=== PATIENT | female | born 2000 | race Caucasian/White ===

== ENCOUNTER → 2021-10-26 | Outpatient (CLI) | payer MEDICAID, SELFPAY | END | disposition home or self-care (01) | LOC: LABSPEC 15:34 | PROVIDERS: Visit Provider Obstetrics & Gynecology | DX: O26.891 Other specified pregnancy related conditions, first trimester (principal); R30.0 Dysuria; Z3A.00 Weeks of gestation of pregnancy not specified | CPT/HCPCS: 87086 ==

== ENCOUNTER 2022-01-24 13:14 | Outpatient (CLI) | payer MEDICAID, SELFPAY ==
[2022-01-24 13:44] LABS: Hematocrit 29.7 % (37-47); Hemoglobin 9.6 g/dL (12.0-15.0); Mean Corp Hgb Conc 32.3 g/dL (32-36); Mean Corpuscular Hgb 26.3 pg (27.0-32.0); Mean Corpuscular Volume 81.4 fL (81-99); Mean Platelet Vol. 11.1 fl (6.2-12.0); Platelet Count 324 K/mm3 (150-450); RBC Distribution Width CV 13.6 % (11.6-14.6); RBC Distribution Width SD 40.3 fl (35.1-43.9); Red Blood Count 3.65 M/mm3 (4.2-5.4); White Blood Count 11.7 K/mm3 (4.4-11.0)
[2022-01-24 13:47] LABS: Glucose Challenge Gest 1H 50g 128 mg/dL (70-140)
== END 2022-01-24 23:59 | disposition home or self-care (01) ==
LOC: WOBLAB 13:15
PROVIDERS: Visit Provider Obstetrics & Gynecology
DX: Z34.83 Encounter for supervision of other normal pregnancy, third trimester (principal)
CPT/HCPCS: 36415; 82950; 85027

== ENCOUNTER 2022-03-03 16:50 | Outpatient (CLI) | payer MEDICAID, SELFPAY ==
[2022-03-03 17:06] VITALS: BP 119/72; PULSE 93; TEMP 37.4; O2SAT 97
[2022-03-03 17:08] VITALS: PULSE 92; O2SAT 97
[2022-03-03 17:13] VITALS: PULSE 101; O2SAT 97
[2022-03-03 17:18] VITALS: PULSE 99; O2SAT 99
[2022-03-03 17:23] VITALS: BMI 45.3
[2022-03-03 18:11] LABS: ROM Internal Control Test YES-OK TO RESULT pt. (Internal QC); ROM Patient Test Negative (Negative)
--- NOTE | 2022-03-03 23:50 | OB.TRI.NOTE ---
HPI - General HPI Narrative KATARZYNA BOATENG, is a 21 F who presents at 32 3/7 weeks gestation with twin gestation and c/o leaking of fluid. She reports coughing, had fever a few days ago. Issues: -anxiety -BMI >40 -Prior C/S -Twin gestation -on Lovenox -hx asthma PFSH PFSH Home Medications albuterol 2 INHALATION PRN PRN 03/03/22 [History Last Taken 03/03/22 10:00] enoxaparin [Lovenox] 112 mg SUBCUT Q12H 03/03/22 [History Last Taken 03/03/22 09:00] Allergy/AdvReac Type Severity Reaction Status Date / Time amoxicillin Allergy Other Verified 03/03/22 17:27 Penicillins [PCN] Allergy Other Verified 03/03/22 17:27 cephalexin [From Keflex] AdvReac Other Verified 03/03/22 17:28 NST FHR Rate Baby A Baseline: 130 Variability:: Moderate Accelerations:: 15 x 15 Decelerations:: None NST Reactive:: Yes FHR Category:: Category I Uterine Activity:: 0/10 FHR Rate Baby B Baseline: 135 Variability:: Moderate Accelerations:: 15 x 15 Decelerations:: None NST Reactive:: Yes FHR Category:: Category I Uterine Activity:: 0/10 Assessment & Plan (1) False labor before 37 completed weeks of gestation: QUALIFIERS: Trimester: third trimester Qualified Code(s): O47.03 - False labor before 37 completed weeks of gestation, third trimester PLAN: Reactive NST x 2 ROM plus negative Respiratory panel sent given persistent cough and recent fever, f/u results Not in labor, d/c home
== END 2022-03-03 19:08 | disposition home or self-care (01) ==
LOC: WPOUT 16:55 → WP 16:56
PROVIDERS: Visit Provider Obstetrics & Gynecology
DX: O47.03 False labor before 37 completed weeks of gestation, third trimester (principal); O30.003 Twin pregnancy, unspecified number of placenta and unspecified number of amniotic sacs, third trimester; O34.219 Maternal care for unspecified type scar from previous cesarean delivery; O99.513 Diseases of the respiratory system complicating pregnancy, third trimester; Z20.822 Contact with and (suspected) exposure to COVID-19; R05.9 Cough, unspecified; Z3A.32 32 weeks gestation of pregnancy
CPT/HCPCS: 59025; 59050; 84112; 87426; 87633; 99218; G0378

== ENCOUNTER 2022-03-12 23:20 | Inpatient (IN) | payer MEDICAID, SELFPAY ==
[2022-03-12 22:19] VITALS: PULSE 86; O2SAT 98
[2022-03-12 22:23] VITALS: BP 131/73; PULSE 81
[2022-03-12 22:25] VITALS: BMI 45.5
[2022-03-12 22:27] VITALS: BP 131/73; PULSE 88; TEMP 36.9; O2SAT 98
[2022-03-12 22:42] LABS: ROM Internal Control Test YES-OK TO RESULT pt. (Internal QC); ROM Patient Test POSITIVE (Negative)
[2022-03-12] MEDS: Lactated Ringers 1,000 ML 999 ML IV (23:00)
[2022-03-12] MEDS: Betamethasone/Betamethasone 30 MG/5 ML Vial 12 MG IM (23:14)
[2022-03-12 23:31] LABS: Absolute Lymphocyte Count 2.66 X10^3/uL (0.83-4.51); Absolute Neutrophil Count 6.4 X10^3/uL (2.0-7.7); Basophil# 0.01 X10^3/uL; Basophil% 0.1 % (0-1); Eosinophil# 0.19 X10^3/uL; Eosinophils% 1.9 % (0-5); Hematocrit 31.6 % (37-47); Hemoglobin 9.8 g/dL (12.0-15.0); Lymphocyte # 2.66 X10^3/ul (0.83-4.51); Lymphocyte % 26.3 % (19-41); Mean Corpuscular Hgb 25.1 pg (27.0-32.0); Mean Platelet Vol. 11.9 fl (6.2-12.0); Monocyte# 0.71 X10^3/uL; NRBC Flagged by Analyzer 0.6 % (0-5); Neutrophil # 6.42 X10^3/uL (2.7-7.7); Neutrophil % 63.6 % (47-70); Platelet Count 333 K/mm3 (150-450); RBC Distribution Width CV 14.3 % (11.6-14.6); RBC Distribution Width SD 41.7 fl (35.1-43.9); White Blood Count 10.1 K/mm3 (4.4-11.0)
[2022-03-12 23:51] VITALS: BP 150/75; PULSE 82; RESP 16; TEMP 37.2; O2SAT 98
--- NOTE | 2022-03-12 23:52 | PCM.HP.BLA ---
History and Physical Date of Admission: 03/12/22 HPI: 21-year-old G3, P1 at 33/6 weeks with dichorionic diamnionic gestation, NICK 04/24/2022 by LMP, admitted for prelabor rupture of membranes. Reports gush of fluid and leaking at 2049 tonight. Reports contractions. Denies vaginal bleeding. Reports movements. Denies headache, vision changes, shortness of breath or chest pain, nausea or vomiting, diarrhea or constipation, fevers or chills. complicated by: prelabor rupture membranes, class III obesity, presumed/working diagnosis of PE in January 2022 based on chest pain and syncope (CTA was unable to be completed due to error with contrast) being treated with therapeutic Lovenox 1 mg/kg subcu twice daily, anxiety, asthma not on medication, dichorionic diamniotic gestation CNC MACHINIST history: G1: 40-week , failure to progress G2: 6-week SAB G3: Current Medical history: 1. Class III obesity 2. PE January 2022 on Lovenox 3. Asthma not on medication Surgical history: 1. section 2. Tonsillectomy and adenoidectomy Medications: 1. Lovenox 1 mg/kg BID 2. Iron Social: Denies alcohol or drug use, former tobacco Family history: No history of blood clots or bleeding disorders Allergy: Penicillin causes palpitations Review of system: Negative otherwise stated above Physical exam: Vitals: BP 131/73, HR 88, Temp 98.5F, O2 sat 98% on RA General: No acute distress, uncomfortable with contraction HEENT: Normocephalic/atraumatic, PERRLA Cardiac: Regular rate and rhythm Lungs: Clear to auscultation bilaterally Abdomen: Soft, nontender, obese, gravid Extremity: Minimal edema Neurologic: Cranial nerves II through XII grossly intact Musculoskeletal: Movement throughout all extremities, strength 5 out of 5 throughout Cervical exam: 2/60/-3, grossly ruptured, ROM positive FHR A: 150/mod nicholas/+accel/no decel FHR B: 145/mod nicholas/+accel/no decel Spiro: irregular BSUS: vertex/breech panel: None found in records, pending Labs today: CBC: WBC 10.1, hemoglobin/hematocrit 9.8/31.6, platelet 333 Assessment & Plan Assessment/Plan (1) Ruptured, membranes, premature: PLAN: 21-year-old G3, P1 at 33/6 weeks with dichorionic diamnionic gestation, NICK 04/24/2022 by LMP, admitted for prelabor rupture of membranes. complicated by: prelabor rupture membranes, class III obesity, presumed/working diagnosis of PE in January 2022 based on chest pain and syncope (CTA was unable to be completed due to error with contrast) being treated with therapeutic Lovenox 1 mg/kg subcu twice daily, anxiety, asthma not on medication, dichorionic diamniotic gestation. ?Admit to labor and delivery. ?Plan for repeat section at 34 weeks, which is midnight due to prelabor rupture of membranes. Patient is uncomfortable with contractions, 2 cm dilated. Current a [facility] guidelines to consider observation versus delivery between 34/0 and 37 weeks. With her history of recent PE during this on Lovenox, balancing delivery versus maternal wellbeing with prompt resumption of Lovenox. Patient is also likely in early labor based on discomfort with contractions and cervical dilation. We will plan to proceed with repeat section at 34/0 weeks based on clinical scenario. ?Celestone given ?No need for magnesium sulfate for neuro protection as patient is greater than 32 weeks gestation ?We will give gentamicin, clindamycin, azithromycin preoperatively. Patient is allergic to penicillins, therefore will hold ampicillin. ?History of postoperative surgical site infection about 1 week after for . Continue antibiotics for 24 hours postdelivery. ?Patient taking therapeutic Lovenox 1 mg/kilogram every 12 hours for pulmonary embolism diagnosed in January 2022. 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 We will resume therapeutic Lovenox . ?Anemia of . -Asthma: Not on medication ?Anxiety: Not on medication currently. (2) Dichorionic diamniotic twin gestation: (3) History of pulmonary embolus during : (4) History of section: (5) Class 3 severe obesity due to excess calories in adult:
[2022-03-12 23:53] VITALS: BP 150/75; PULSE 81
[2022-03-13] VITALS (16 sets, daily range): BP systolic 113–167; BP diastolic 40–103; PULSE 58–91; RESP 10–19; TEMP 35.9–36.7; O2SAT 94–100
[2022-03-13] MEDS: Sodium Citrate/Citric Acid 30 ML UDC PO (00:11)
[2022-03-13] MEDS: Acetaminophen 500 MG Tablet 1000 MG PO ×3 (00:12→13:42)
[2022-03-13] MEDS: Clindamycin 900 MG/50 ML BAG 75 MG IV ×3 (00:20→18:38)
[2022-03-13] MEDS: Carboprost Tromethamine 250 MCG/ML Ampul IM (00:53)
--- NOTE | 2022-03-13 01:39 | EX.PCM.OBRPT ---
Maternal Data Information Final NICK: 04/24/22 Final NICK Source: LMP Details Operative Information Date of Procedure: 03/13/22 Pre-Operative Diagnosis: Di chorionic diamniotic gestation, prelabor rupture of membranes Post-Operative Diagnosis: Di chorionic diamniotic gestation, prelabor rupture of membranes Indications Narrative: 21-year-old at 34/0 weeks presenting with prelabor rupture of membranes with dichorionic diamniotic twin gestation. Complicated further by class III obesity, history of pulmonary embolus during on therapeutic Lovenox, history of asthma with rare albuterol use, history of anxiety. For repeat section. All risk, benefits, alternatives discussed with the patient. Risk include are not limited to: Risk of bleeding twin transfusion, infection, injury to surrounding tissue including bowel/bladder requiring prolonged Marie catheter use, VTE, ICU admission. Patient were consented. Classification: ANIBAL Procedure Type: low transverse Estimated Blood Loss: 1000 cc Fluids Replaced: 1000 cc Findings Description of Procedure: Procedure: Patient taken to the operating room. Marie catheter placed. Prepped and draped in the usual sterile fashion. General anesthesia induced. Pfannenstiel skin incision made with scalpel and carried down through subcutaneous tissue. Fascia nicked. Extended bluntly and sharply using Pickering scissors. Rectus muscles noted to be very , peritoneum adhesed to fascia. Yaw clamps grasped superior fascial edge and underlying rectus muscles dissected off bluntly and sharply using Pickering scissors. Peritoneum entered bluntly and extended bluntly. Bladder blade placed. Low transverse uterine incision made with scalpel and extended bluntly. Hand placed into the uterine cavity. Head elevated to the level of the hysterotomy, bladder blade removed. With the assistance of gentle fundal pressure, head delivered followed by body. Cord clamped and cut. Baby handed to waiting nursery staff. Baby baby's amniotic sac ruptured, clear fluid. Breech position. Feet noted after rupture of membranes. Feet delivered followed by legs. Baby rotated back up. Blue towel placed around abdomen. Torso guided out of the hysterotomy. Arms delivered by sweeping across chest anteriorly. Head flexed and delivered. Cord clamped and cut, baby handed to nursery staff. Manual extraction of placenta. Baby B cord clamped with cord clamp. Uterus exteriorized and cleared of all clots. Hysterotomy closed with a running locking stitch. This was followed by second vertical imbricating stitch. Uterus replaced into the abdomen. Hysterotomy made hemostatic with 1 [id number] stitch. Peritoneum closed with a running stitch. Muscle on left side noted to be too far lateral to reapproximate with suture. Small area of rectus muscle noted hanging at midline, trimmed. Hemostatic. Fascia closed with a running stitch. Subcutaneous tissue irrigated. Subcutaneous tissue closed with suture, running stitch. Skin closed with a running subcuticular stitch. At the end of the procedure all needle, lap, sponge counts were correct x3. UOP: 450cc Babies to special care nursery, APGARS pending. Plan for 24 hours antibiotics due to class III obesity and history of surgical site infection. Restart therapeutic Lovenox in 24 hours. Patient received Hemabate in OR due to uterine atony. Patient does have history of asthma, however with rare albuterol use. Did not use Methergine due to hypertension intermittent during admission thus far.
[2022-03-13] MEDS: Oxytocin 30 units/NS 500 ml 30 UNITS/500 ML IV.SOLN 167 UNITS IV (02:10)
[2022-03-13] MEDS: Ketorolac 15 MG/ML Vial IV ×3 (02:33→16:37)
[2022-03-13] MEDS: 0.9% Saline Lock 10 ML Syringe IV ×2 (02:34→16:38)
--- NOTE | 2022-03-13 03:11 | NURSING ---
Called Ventura Paz at 0219 to update him on pt. feeling heavy in her chest and pulse ox of 88. Ventura Paz ordered nasal canula to be placed on pt. Nasal canula placed at 0220 per this RN.
[2022-03-13] MEDS: HYDROmorphone 1 MG/ML Syringe IV (04:28)
[2022-03-13] MEDS: Lactated Ringers 1,000 ML 100 ML IV (05:20)
--- NOTE | 2022-03-13 06:08 | NURSING ---
On placenta Cord baby A had one clamp on cord and Baby B had 2 cord clamps on cord.
[2022-03-13 06:30] LABS: Chlamydia Trachomatis by PCR Negative (Negative); Neisserai gonorrhoeae by PCR Negative (Negative); Probe Check PASS; Sample Adequacy Control PASS; Specimen Processing Control PASS
[2022-03-13 08:24] LABS: Rubella IgG Reactive (Nonreactive); Syphilis Antibodies Non-reactive
--- NOTE | 2022-03-13 08:47 | PN.OBGYN_ITS ---
Subjective Subjective No issues overnight. She is sore. Not yet out of bed. Passing flatus. Tolerates PO without nausea or vomiting. Objective Data Objective Data Vital Signs: Vital Signs Temp Pulse Resp BP Pulse Ox 96.8 F L 58 L 16 131/78 H 100 03/13/22 16:39 03/13/22 16:39 03/13/22 16:39 03/13/22 16:39 03/13/22 16:39 Oxygen Delivery Method Room Air Weight: 116.573 kg Body Mass Index (BMI) 45.5 Intake & Output: Intake and Output for Last 24 Hours 03/11/22 03/12/22 03/13/22 23:59 23:59 23:59 Intake Total 2511.5 / 2511.5 Output Total 2300 / 2300 Balance 211.5 / 211.5 Lab / Micro Data Result Diagrams: 03/12/22 23:00 Labs: Laboratory Results - last 24 hr 03/12/22 22:15: Vag Amniotic Fld Detect POSITIVE H 03/12/22 23:00: WBC 10.1, RBC 3.90 L, Hgb 9.8 L, Hct 31.6 L, MCV 81.0, MCH 25.1 L, MCHC 31.0 L, RDW Std Deviation 41.7, RDW Coeff of Jas 14.3, Plt Count 333, MPV 11.9, Immature Gran % (Auto) 1.100 H, Neut % (Auto) 63.6, Lymph % (Auto) 26.3, Carlton % (Auto) 7.0, Eos % (Auto) 1.9, Baso % (Auto) 0.1, Absolute Neuts (auto) 6.4, Absolute Lymphs (auto) 2.66, Nucleated RBC % 0.6 03/12/22 23:00: Blood Type A POSITIVE, Antibody Screen NEGATIVE 03/12/22 23:00: Syphilis Total Ab Non-reactive, Rubella IgG Antibody Reactive 03/12/22 23:00: Hep Bs Antigen Non-Reactive, Hepatitis C Antibody Non-Reactive, HIV 1&2 Antibody Non-Reactive 03/13/22 03:35: Chlam trachomat DNA PCR Negative, N.gonorrhoeae DNA (PCR) Negative ROS Eyes Eyes: Denies other visual disturbances Cardiovascular Cardiovascular: Denies chest pain or dyspnea Neurologic Neurologic: Denies headache(s) or loss of vision Physical Exam Const alert, oriented x3 and no apparent distress Resp normal respiratory effort, normal air movement and clear to auscultation bilaterally Cardio regular rate, regular rhythm, S1 normal heart sound and S2 normal heart sound GI normal to inspection, nondistended, normoactive bowel sounds, soft to palpation, non-tender and non-distended GI Narrative: incisional dressing c/d/i Narrative: Fundus firm and nontender, lochia moderate Manual OB Exam: other lochia scant Uterus Palpation: uterus fundus firm Extremity no calf tenderness Assessment & Plan (1) delivery delivered: PLAN: Routine postop care RPR nr, HBsAg neg, HCV Ab neg, HIV nr, Rubella immune Bottlefeeding, consider nursing - support (2) Class 3 severe obesity due to excess calories in adult: QUALIFIERS: Serious obesity comorbidity presence: without serious comorbidity Body mass index: BMI 45.0-49.9 Qualified Code(s): E66.01 - Morbid (severe) obesity due to excess calories; Z68.42 - Body mass index [BMI] 45.0- 49.9, adult PLAN: hx wound infection following first Continue Abx x 24h postop (3) History of pulmonary embolus during : PLAN: Lovenox weight based bid
[2022-03-13 08:50] LABS: HIV - WCH Non-Reactive (Nonreactive); Hepatitis B Surface Antigen Non-Reactive (Nonreactive); Hepatitis C Antibody Non-Reactive (Nonreactive)
[2022-03-13] MEDS: oxyCODONE 5 MG Tablet PO ×2 (09:37→20:41)
[2022-03-13] MEDS: Acetaminophen/Butalbital/Caffe 1 Tablet 2 TABLET PO (09:38)
[2022-03-13] MEDS: Senna/Docusate Sodium 1 Tablet PO (13:43)
[2022-03-13] MEDS: Enoxaparin 120 MG/0.8 ML Syringe SC ×2 (14:20→22:24)
--- NOTE | 2022-03-13 22:50 | NURSING ---
late entry: at 2111-Michael from pharmacy updated this RN that tylenol 1000mg scheduled dose will not scan because pt had fioriciet earlier today. Pt may have next dose of tylenol at 11.
[2022-03-14 00:15] VITALS: BP 115/58; PULSE 66; RESP 16; TEMP 36.3
[2022-03-14] MEDS: Acetaminophen 500 MG Tablet 1000 MG PO ×4 (00:20→18:44)
[2022-03-14] MEDS: 0.9% Saline Lock 10 ML Syringe IV ×5 (01:38→22:06)
[2022-03-14] MEDS: Clindamycin 900 MG/50 ML BAG 75 MG IV (02:31)
[2022-03-14 06:55] LABS: Hematocrit 23.1 % (37-47); Hemoglobin 7.3 g/dL (12.0-15.0); Mean Corp Hgb Conc 31.6 g/dL (32-36); Mean Corpuscular Hgb 25.6 pg (27.0-32.0); Mean Corpuscular Volume 81.1 fL (81-99); Mean Platelet Vol. 11.3 fl (6.2-12.0); Platelet Count 318 K/mm3 (150-450); RBC Distribution Width CV 14.6 % (11.6-14.6); RBC Distribution Width SD 42.6 fl (35.1-43.9); Red Blood Count 2.85 M/mm3 (4.2-5.4); White Blood Count 17.3 K/mm3 (4.4-11.0)
--- NOTE | 2022-03-14 07:38 | PN.OBGYN_ITS ---
Subjective Subjective Denies headache, vision changes, shortness breath, lightheadedness. She is sore today. Denies heavy lochia. Objective Data Objective Data Vital Signs: Vital Signs Temp Pulse Resp BP Pulse Ox 97.3 F L 66 16 115/58 L 97 03/14/22 00:15 03/14/22 00:15 03/14/22 00:15 03/14/22 00:15 03/13/22 20:47 Oxygen Delivery Method Room Air Weight: 116.573 kg Body Mass Index (BMI) 45.5 Intake & Output: Intake and Output for Last 24 Hours 03/12/22 03/13/22 03/14/22 23:59 23:59 23:59 Intake Total 2561.5 / 2561.5 106.5 / 106.5 Output Total 2300 / 2300 Balance 261.5 / 261.5 106.5 / 106.5 Lab / Micro Data Result Diagrams: 03/14/22 06:45 Labs: Laboratory Results - last 24 hr 03/12/22 23:00: Syphilis Total Ab Non-reactive, Rubella IgG Antibody Reactive 03/12/22 23:00: Hep Bs Antigen Non-Reactive, Hepatitis C Antibody Non-Reactive, HIV 1&2 Antibody Non-Reactive 03/14/22 06:45: WBC 17.3 H, RBC 2.85 L, Hgb 7.3 L, Hct 23.1 L, MCV 81.1, MCH 25.6 L, MCHC 31.6 L, RDW Std Deviation 42.6, RDW Coeff of Jas 14.6, Plt Count 318, MPV 11.3 Physical Exam Const alert, oriented x3 and no apparent distress Resp normal respiratory effort, normal air movement and clear to auscultation bilate rally Cardio regular rate, regular rhythm, S1 normal heart sound and S2 normal heart sound GI normal to inspection, nondistended, normoactive bowel sounds, soft to palpation, non-tender and non-distended GI Narrative: incisional dressing c/d/i Narrative: FUndus firm and nontender Manual OB Exam: other lochia scant Uterus Palpation: uterus fundus firm Extremity no calf tenderness Extremity Narrative: +1 left pedal edema, trace right pedal edema Assessment & Plan (1) delivery delivered: PLAN: Anemia - repeat CBC in am Routine postop care (2) History of pulmonary embolus during : PLAN: Lovenox bid (3) Class 3 severe obesity due to excess calories in adult: QUALIFIERS: Serious obesity comorbidity presence: without serious comorbidity Body mass index: BMI 45.0-49.9 Qualified Code(s): E66.01 - Morbid (severe) obesity due to excess calories; Z68.42 - Body mass index [BMI] 45.0- 49.9, adult PLAN: Antibiodics completed
[2022-03-14 07:47] VITALS: BP 123/51; PULSE 60; RESP 16; TEMP 36.3; O2SAT 97
[2022-03-14] MEDS: Senna/Docusate Sodium 1 Tablet PO (08:15)
[2022-03-14] MEDS: Ketorolac 15 MG/ML Vial IM (08:15)
[2022-03-14] MEDS: Enoxaparin 120 MG/0.8 ML Syringe SC ×2 (10:37→22:06)
[2022-03-14] MEDS: Ketorolac 15 MG/ML Vial IV ×2 (14:45→22:06)
[2022-03-14 14:57] VITALS: BP 121/61; PULSE 82; RESP 16; TEMP 36.4; O2SAT 100
[2022-03-14 20:20] VITALS: BP 128/56; PULSE 80; RESP 16; TEMP 36.4; O2SAT 96
[2022-03-15] MEDS: Acetaminophen 500 MG Tablet 1000 MG PO ×4 (00:15→21:41)
[2022-03-15 02:00] VITALS: BP 106/44; PULSE 75; RESP 16; TEMP 36.4; O2SAT 95
[2022-03-15 06:24] LABS: Absolute Lymphocyte Count 3.28 X10^3/uL (0.83-4.51); Absolute Neutrophil Count 6.2 X10^3/uL (2.0-7.7); Basophil# 0.02 X10^3/uL; Basophil% 0.2 % (0-1); Eosinophil# 0.15 X10^3/uL; Eosinophils% 1.4 % (0-5); Hematocrit 22.2 % (37-47); Hemoglobin 6.9 g/dL (12.0-15.0); Lymphocyte # 3.28 X10^3/ul (0.83-4.51); Lymphocyte % 30.9 % (19-41); Mean Corp Hgb Conc 31.1 g/dL (32-36); Mean Corpuscular Hgb 25.5 pg (27.0-32.0); Mean Corpuscular Volume 81.9 fL (81-99); Monocyte# 0.74 X10^3/uL; NRBC Flagged by Analyzer 0.6 % (0-5); Neutrophil # 6.17 X10^3/uL (2.7-7.7); Neutrophil % 58.2 % (47-70); POSITIVE MORPHOLOGY YES; Platelet Count 272 K/mm3 (150-450); RBC Distribution Width CV 14.7 % (11.6-14.6); RBC Distribution Width SD 42.8 fl (35.1-43.9); Red Blood Count 2.71 M/mm3 (4.2-5.4); White Blood Count 10.6 K/mm3 (4.4-11.0)
[2022-03-15 06:26] LABS: Differential Indicated SCAN CRITERIA MET
[2022-03-15 06:39] LABS: Anisocytosis 1+; Atypical Lymphocyte 1+ %
--- NOTE | 2022-03-15 08:42 | PN.OBGYN_ITS ---
Subjective Subjective Patient without complaints. Tolerating diet well. Positive flatus. Babies need to stay in for several more days so patient wants to stay. Objective Data Objective Data Vital Signs: Vital Signs Temp Pulse Resp BP Pulse Ox 97.5 F L 75 16 106/44 L 95 03/15/22 02:00 03/15/22 02:00 03/15/22 02:00 03/15/22 02:00 03/15/22 02:00 Oxygen Delivery Method Room Air Weight: 257 lb Body Mass Index (BMI) 45.5 Intake & Output: Intake and Output for Last 24 Hours 03/13/22 03/14/22 03/15/22 23:59 23:59 23:59 Intake Total 2561.5 / 2561.5 106.5 / 106.5 Output Total 2300 / 2300 Balance 261.5 / 261.5 106.5 / 106.5 Lab / Micro Data Result Diagrams: 03/15/22 06:15 Labs: Laboratory Results - last 24 hr 03/15/22 06:15: WBC 10.6, RBC 2.71 L, Hgb 6.9 L, Hct 22.2 L, MCV 81.9, MCH 25.5 L, MCHC 31.1 L, RDW Std Deviation 42.8, RDW Coeff of Jas 14.7 H, Plt Count 272, MPV 11.0, Immature Gran % (Auto) 2.300 H, Neut % (Auto) 58.2, Lymph % (Auto) 30.9, Campbell % (Auto) 7.0, Eos % (Auto) 1.4, Baso % (Auto) 0.2, Absolute Neuts (auto) 6.2, Absolute Lymphs (auto) 3.28, Nucleated RBC % 0.6, Atypical L ymphocytes 1+, Anisocytosis 1+ Assessment & Plan (1) delivery delivered: PLAN: Doing well postoperative day #2 status post section for rupture membranes with twins. Continuing present care. Orthostatic symptoms so we will continue to monitor and encourage iron supplementation at home.
[2022-03-15 10:00] VITALS: BP 138/71; PULSE 92; RESP 18; TEMP 36.6; O2SAT 97
[2022-03-15] MEDS: Enoxaparin 120 MG/0.8 ML Syringe SC ×2 (11:50→21:40)
[2022-03-15 14:00] VITALS: BP 138/79; PULSE 76; RESP 16; TEMP 36.7; O2SAT 98
[2022-03-15] MEDS: Ibuprofen 600 MG Tablet PO (14:08)
[2022-03-15 21:35] VITALS: BP 131/66; PULSE 78; RESP 16; TEMP 36.1; O2SAT 97
--- NOTE | 2022-03-15 23:55 | NURSING ---
This IBCLC assisted mother with her 22:30 pumping session. We used Colostrum collectors for this session and reviewed pump setting, warmth and massage, and proper storage and labeling of any colostrum or breastmilk collected. Mother is aware she needs to pump Q3hr for 15-20mins
[2022-03-16] VITALS (7 sets, daily range): BP systolic 127–139; BP diastolic 63–72; PULSE 63–103; RESP 16–18; TEMP 36.1–36.6; O2SAT 97–98
[2022-03-16] MEDS: Acetaminophen 500 MG Tablet 1000 MG PO ×2 (02:06→10:34)
--- NOTE | 2022-03-16 09:25 | PCM.PN.OB ---
Subjective Subjective Patient without complaints. Tolerating diet well. Positive flatus. Babies staying for several more days in the hospital. Objective Data Objective Data Vital Signs: Vital Signs Temp Pulse Resp BP Pulse Ox 97 F L 63 16 127/63 H 98 03/16/22 02:09 03/16/22 02:09 03/16/22 02:09 03/16/22 02:09 03/16/22 02:09 Oxygen Delivery Method Room Air Weight: 257 lb Body Mass Index (BMI) 45.5 Intake & Output: Intake and Output for Last 24 Hours 03/14/22 03/15/22 03/16/22 23:59 23:59 23:59 Intake Total 106.5 / 106.5 Balance 106.5 / 106.5 Lab / Micro Data Result Diagrams: 03/15/22 06:15 Assessment & Plan (1) delivery delivered: PLAN: Doing well postoperative day #3 status post section for rupture of membranes with twins. Denies any orthostatic changes. Continue present care.
[2022-03-16] MEDS: Senna/Docusate Sodium 1 Tablet PO (10:34)
[2022-03-16] MEDS: Enoxaparin 120 MG/0.8 ML Syringe SC ×2 (10:36→21:56)
[2022-03-16] MEDS: Ibuprofen 600 MG Tablet PO (13:34)
--- NOTE | 2022-03-19 09:39 | PCM.DC.SUM ---
Providers Date of Admission: 03/12/22 Reason For Visit: C SECTION Diagnosis Discharge Diagnosis (1) delivery delivered: Status: Acute Code(s): O82 - Encounter for delivery without indication Plan: Patient was instructed to return in 2 weeks for an incision check and in 6 weeks for check. Patient is to call with fever greater than 101 ?F, inability have a bowel movement or urinate. For now patient is discharged to hotel status given her twin infants continue to be in the hospital nursery. She was also instructed to continue iron sulfate daily or twice daily. Medications at Discharge Home Medications albuterol 2 mcg INHALATION PRN PRN 03/03/22 enoxaparin [Lovenox] 112 mg SUBCUT Q12H 03/03/22 Weight / BMI Weight Weight: 257 lb Body Mass Index (BMI) 45.5 ABG / Lab / Microbiology Data Result Diagrams: 03/15/22 06:15 Meaningful Use Info Meaningful Use Diagnoses (Choose all that apply): None applicable Discharge Plan Admission Admit Date/Time: 03/12/22 23:20 Attending Provider: Liliane Gates Instructions Patient Instructions: After a , The Benefits of Breastmilk Discharge Orders/Prescriptions Prescriptions: No Action albuterol 90 mcg/actuation Aerosol 2 mcg INHALATION PRN PRN (Reason: breathing problems) RF: 0 enoxaparin [Lovenox] 120 mg/0.8 mL Syringe 112 mg SUBCUT Q12H RF: 0 Disposition Disposition (needs filled in before D/C Order can be placed): Home, Self Care
== END 2022-03-16 22:05 | disposition home or self-care (01) | DRG 540 ==
LOC: WPOUT 23:23 → WP 23:23
PROVIDERS: Obstetrics & Gynecology; Admitting Provider Student in an Organized Health Care Education/Training Program; Visit Provider Student in an Organized Health Care Education/Training Program
DX: O60.14X1 Preterm labor third trimester with preterm delivery third trimester, fetus 1 (principal); Z37.2 Twins, both liveborn; O30.043 Twin pregnancy, dichorionic/diamniotic, third trimester; O99.214 Obesity complicating childbirth; O32.1XX1 Maternal care for breech presentation, fetus 1; E66.01 Morbid (severe) obesity due to excess calories; O75.89 Other specified complications of labor and delivery; O34.219 Maternal care for unspecified type scar from previous cesarean delivery; O60.14X2 Preterm labor third trimester with preterm delivery third trimester, fetus 2; Z3A.34 34 weeks gestation of pregnancy; Z87.891 Personal history of nicotine dependence; Z86.711 Personal history of pulmonary embolism
CPT/HCPCS: 59025; 59050; 84112; 85025; 85027; 86703; 86762; 86780; 86803; 86850; 86900; 86901; 87340; 87491; 87591; 99218; J7120; A4216; G0378; J0702

== ENCOUNTER → 2022-04-18 | Outpatient (CLI) | payer MEDICAID, SELFPAY | END | disposition home or self-care (01) | LOC: LABSPEC 14:33 | PROVIDERS: Visit Provider Obstetrics & Gynecology | DX: Z12.4 Encounter for screening for malignant neoplasm of cervix (principal) | CPT/HCPCS: 88175; G0145 ==